=== PATIENT | female | born 1980 | race Caucasian/White ===

== ENCOUNTER 2018-04-26 13:22 | Inpatient (IN) | payer BC ==
[2018-04-26] MEDS ORDERED: Calcium Carbonate 500 MG Tab.Chew PO PRN (14:06)
[2018-04-26] MEDS ORDERED: Lidocaine 1% 50 ML MDV INJECT ONE (14:06)
[2018-04-26] MEDS ORDERED: Nalbuphine 20 MG/ML 1 ML Syringe IVPUSH PRN (14:06)
[2018-04-26] MEDS ORDERED: Sodium Chloride 0.9% 10 ML Syringe FLUSH PRN (14:06)
[2018-04-26] MEDS ORDERED: Ondansetron 4 MG/2 ML SDV IVPUSH PRN ×2 (14:06→14:10)
[2018-04-26] MEDS ORDERED: ePHEDrine 50 MG/ML SDV IVPUSH PRN (14:10)
[2018-04-26] MEDS ORDERED: fentaNYL 100 MCG/2 ML SDV EPIDUR PRN (14:10)
[2018-04-26] MEDS ORDERED: diphenhydrAMINE 50 MG/ML SDV IVPUSH PRN (14:10)
--- NOTE | 2018-04-26 14:10 | PCM.PREANE ---
Preanesthetic Assessment - Anesthesia/Transfusion/Family Hx Anesthesia History: Prior Anesthesia Reaction Type of Anesthesia Reaction: Excessive Nausea/Vomiting Family History of Anesthesia Reaction: No Transfusion History: No Prior Transfusion(s) Intubation History: Unknown - Review of Systems General: No Symptoms Pulmonary: No Symptoms Cardiovascular: No Symptoms Gastrointestinal: No Symptoms (History of gastric bypass/GERD), Constipation Neurological: No Symptoms (sciatica pain more on left side with ) Other: Reports: Easy Bleeding, Easy Bruising, Anxiety - Physical Assessment NPO Status Date: 04/26/18 NPO Status Time: 11:00 Pulse: 77 O2 Sat by Pulse Oximetry: 99 Respiratory Rate: 16 Blood Pressure: 129/78 Temperature: 36.5 C Height: 1.68 m Weight: 97 kg ASA Class: 2 Mental Status: Alert & Oriented x3 Airway Class: Mallampati = 2 Dentition: Reports: Normal Dentition, Caries Thyro-Mental Finger Breadths: 3 Mouth Opening Finger Breadths: 3 ROM/Head Extension: Full Lungs: Clear to Auscultation, Normal Respiratory Effort Cardiovascular: Regular Rate, Regular Rhythm, No Murmurs - Allergies Allergies/Adverse Reactions: Allergies Allergy/AdvReac Type Severity Reaction Status Date / Time cefaclor [From Ceclor] Allergy Hives Verified 10/11/15 02:24 sulfamethoxazole Allergy Hives Verified 10/11/15 02:24 [From Bactrim] trimethoprim [From Bactrim] Allergy Hives Verified 10/11/15 02:24 - Anesthesia Plan Pre-Op Medication Ordered: None - Acknowledgements Anesthesia Type Planned: Epidural Pt an Appropriate Candidate for the Planned Anesthesia: Yes Alternatives and Risks of Anesthesia Discussed w Pt/Guardian: Yes Pt/Guardian Understands and Agrees with Anesthesia Plan: Yes PreAnesthesia Questionnaire HEENT History: Reports: None Gastrointestinal History: Reports: None ORACLE CONSULTANT History: Reports: , Other (See Below) Other OB/BYN History: 23week delivery of twins due to abruption - Past Surgical History HEENT Surgical History: Reports: Oral Surgery, Tonsillectomy GI Surgical History: Reports: Bariatric Procedure, Cholecystectomy, Other (See Below)
[2018-04-26] MEDS ORDERED: fentaNYL/Bupivacaine-NS 2 MCG/ML-0.125%/PF 100 ML Bag EP SCH (14:15)
[2018-04-26] MEDS ORDERED: Oxytocin/Lactated Ringers 10 UNIT/1,000 ML BAG IV SCH ×2 (14:15)
[2018-04-26] MEDS ORDERED: Phenylephrine 1 MG in Sodium Chloride 0.9% 10 ML IV SCH (14:15)
[2018-04-26] MEDS ORDERED: Ampicillin 2 GM in Sodium Chloride 0.9% 100 ML IV ONE (14:30)
[2018-04-26] MEDS: Lactated Ringers 1,000 ML IV SCH ×2 (14:49→18:46)
[2018-04-26] MEDS ORDERED: Ampicillin 1 GM in Sodium Chloride 0.9% 100 ML IV SCH (18:30)
--- NOTE | 2018-04-26 19:53 | PCM.LDHP ---
L&D History of Present Illness - General Date of Service: 04/26/18 Admit Problem/Dx: Patient Status Order with Admit Dx/Problem 04/26/18 14:06 Patient Status [ADT] Routine Admission Diagnosis/Problem Admission Diagnosis/Problem 04/26/18 19:41 Shelia is a 37-year-old 3 para 02/08/00 white female at 39-0/7 weeks gestational age with an ANGEL of 05/03/2018 who is admitted to labor and delivery for an elective induction of labor Source of Information: Patient History Limitations: Reports: No Limitations - History of Present Illness Introduction:: Shelia is a 37-year-old 3 para 02/08/00 white female at 39-0/7 weeks gestational age with an ANGEL of 05/03/2018 who is admitted to labor and delivery for an elective induction of labor. Patient is admitted for elective induction of labor per her desire. Her ANGEL is 05/03/2018 as determined by a certain laststarting 07/27/2017 and supported by 4 ultrasounds done during the on 10/13/2017, 12/22/2017, 01/23/2018 and 02/24/2018. She is alejandra occasionally. heart tones are reassuring. SENIOR UX DEVELOPER history:Patient has a final statured history. She is a 3 para 02/07. Vision menarche at approximate age 13. Cycles irregular. Last menstrual period however is definite starting on 07/27/2017. 1. Twin gestationmodel dye twins named Mika and Adonay delivered on 10/22/2014 at 23 weeks gestational age. Mika weighed 1 lb. 2 oz. and Adonay weighed 0 lbs. 14 oz. Both succumbed shortly after . 2. Female infant born 10/11/2015 at 37 weeks gestational age after 4 hours of labor. 6 lbs. 6 oz. born via spell normal spontaneous vaginal delivery. Born at [facility] in [place]. Child's name is Ivis SENIOR UX DEVELOPER history: The patient was seen on a regular basis during the course of . Her first visit was on 10/13/2017 at 11-1/7 weeks gestational age. She is seen regularly, had normal fundal height growth. Her weight increased from 188 pounds 211 pounds for approximately 23 pound weight gain. She declined a flu vaccination. She had some contractions on 03/22/2018 but fibronectin was done and was negative. Patient had group B strep positive urine culture. She is Rh- with O- blood. She had RhoGAM given on 02/08/2018. She did receive her Tdap immunization on 02/23/2018. Laboratory testing shows blood to be O- with a negative antibody screen. Her blood at first visit showed hemoglobin 12.2 g/dL and platelets of 398,000. She is rubella immune. RPR is not is nonreactive. Urine culture was positive for group B strep. Hepatitis B surface antigen and HIV assays were both negative. Chlamydia and gonorrhea both negative. Her second trimester labs showed hemoglobin which was 9.5 g/dL which time patient was started on some vitamins plus iron. Platelet count is 415,000. Her diabetic screen was normal at 128,000. Third trimester hemoglobin was 8.9 g/dL and platelets are 404 ,000. Group B strep was positive. Allergies: 1. Ceclor which causes hives and swelling 2. Augmentin which causes hives and swelling 3. Bactrim which causes hives and swelling Medications: 1. Mupirocin ointment apply 3 times a day when necessary 2. Valacyclovir when necessary for oral herpes 3. vitamins daily 4. Vitamin D tablets 1000 units per day 5. Vitamin B 12 tablets 1 daily 6. Calcium plus D1 tablet daily 7. Zantac 50 mg by mouth every 12 hours when necessary Past medical history: 1. Vaginal delivery of 23 week twins 10/22/2014 monochorionic, diamniotic twins- both shortly after delivery 2. Normal spontaneous vaginal delivery 10/11/2015, term 3. Depression Past surgical history: Gastric bypass surgery 2. Cholecystectomy 2008 3. Tonsillectomy 2010 4. Sinus surgery 1994 Review of systems: In general patient has no complaints. Babies been active. Skin: Negative Lungs: No infectious symptoms or shortness of breath Cardiovascular: No chest pain or exercise intolerance Breasts: No lumps, changes in size, pain, dimpling, discharge or axillary or supraclavicular concerns. Changes associated . GI: Negative : Negative other than changes associated . Musculoskeletal: Negative Neurological: Negative In general the patient is well-developed, well-nourished, pleasant female of stated age in no acute distress. Skin is warm dry without lesions. HEENT, neck and back within normal limits. Lungs are clear with good breath sounds in all lung gracia. Cardiovascular exam shows regular and rhythm without murmurs. Abdomen is gravid with fundal height consistent with term at 37-1/2 cm. Baby in vertex presentation Genital cervix 3 cm, 80% effaced, -3 station, well applied to the cervix, artificial rupture membranes with clear amniotic fluid present. Extremities and neurological exam are grossly within normal limits. Pain Score: 8 - Related Data Allergies/Adverse Reactions: Allergies Allergy/AdvReac Type Severity Reaction Status Date / Time cefaclor [From Ceclor] Allergy Hives Verified 10/11/15 02:24 sulfamethoxazole Allergy Hives Verified 10/11/15 02:24 [From Bactrim] trimethoprim [From Bactrim] Allergy Hives Verified 10/11/15 02:24 Home Medications: Home Meds Amoxicillin 500 mg PO TID 04/26/18 [History] Calcium Carbonate [Calcium] 500 mg PO DAILY 04/26/18 [History] Cholecalciferol (Vitamin D3) [Vitamin D3] 2,000 unit PO DAILY 04/26/18 [History] Cyanocobalamin/Cobamamide [Vitamin B-12 5,000 Mcg Tab Sl] 1 each SL DAILY [History] Omeprazole Magnesium [Prilosec] 10 mg PO DAILY 04/26/18 [History] Pnv No.122/Iron/Folic Acid [ Multi Tablet] 1 each PO DAILY 04/26/18 [ History] Sertraline [Zoloft] 25 mg PO DAILY 04/26/18 [History] Past Medical History HEENT History: Reports: None Other HEENT History: tooth abcess Gastrointestinal History: Reports: None SENIOR UX DEVELOPER History: Reports: , Other (See Below) Other OB/BYN History: 23week delivery of twins due to abruption Psychiatric History: Reports: Anxiety, Depression Endocrine/Metabolic History: Reports: Obesity/BMI 30+ Hematologic History: Reports: Anemia - Past Surgical History HEENT Surgical History: Reports: Oral Surgery, Tonsillectomy GI Surgical History: Reports: Bariatric Procedure, Cholecystectomy, Other (See Below) Social & Family History - Family History Family Medical History: Noncontributory - Tobacco Use Smoking Status *Q: Never Smoker - Recreational Drug Use Recreational Drug Use: No H&P Review of Systems - Review of Systems: Review Of Systems: See Below L&D Exam - Exam Exam: See Below - Vital Signs Vital Signs: Last Vital Signs Temp 36.5 C 04/26/18 14:28 Pulse 77 04/26/18 14:28 Resp 16 04/26/18 14:28 BP 129/78 04/26/18 14:28 Pulse Ox 99 04/26/18 14:28 Weight: 96.797 kg - Patient Data Lab Results Last 24 hrs: Laboratory Results - last 24 hr 04/26/18 Range/Units 13:50 WBC 9.73 (3.98-10.04) K/mm3 RBC 3.70 L (3.98-5.22) M/mm3 Hgb 9.2 L (11.2-15.7) gm/L Hct 29.2 L (34.1-44.9) % MCV 78.9 L (79.4-94.8) fl MCH 24.9 L (25.6-32.2) pg MCHC 31.5 L (32.2-35.5) g/dl RDW Std Deviation 41.7 (36.4-46.3) fL Plt Count 408 H (182-369) K/mm3 MPV 9.7 (9.4-12.3) fl Result Diagrams: 04/26/18 13:50 Problem List Initiated/Reviewed/Updated: Yes Orders Last 24hrs: Active Orders 24 hr Category Date Time Status Patient Status [ADT] Routine ADT 04/26/18 14:06 Active Activity as Tolerated [RC] PFP Care 04/26/18 14:06 Active Antiembolic Devices [RC] PER UNIT ROUTINE Care 04/26/18 14:10 Active Communication Order [RC] ASDIRECTED Care 04/26/18 14:06 Active Notify Provider [RC] ASDIRECTED Care 04/26/18 14:10 Active Notify Provider [RC] PFP Care 04/26/18 14:06 Active Notify Provider [RC] PRN Care 04/26/18 14:06 Active Peripheral IV Care [RC] Q2HR Care 04/26/18 14:07 Active Pulse Oximetry [RC] ASDIRECTED Care 04/26/18 14:10 Active Pump Management, Intrathecal [RC] ASDIRECTED Care 04/26/18 14:10 Active Urinary Catheter Assessment [RC] ASDIRECTED Care 04/26/18 14:06 Active Vital Signs [RC] PER UNIT ROUTINE Care 04/26/18 14:06 Active Regular Diet [DIET] Diet 04/26/18 Dinner Active RAPID PLASMA REAGIN,RPR [CHEM] Routine Lab 04/26/18 13:50 Received Ampicillin 1 gm Med 04/26/18 18:30 Active Sodium Chloride 0.9% [Normal Saline] 100 ml IV Q4H Calcium Carbonate [Tums] Med 04/26/18 14:06 Active 1,000 mg PO Q2H PRN Lactated Ringers [Ringers, Lactated] 1,000 ml Med 04/26/18 14:15 Active IV ASDIRECTED Nalbuphine [Nubain] Med 04/26/18 14:06 Active 10 mg IVPUSH Q2H PRN Ondansetron [Zofran] Med 04/26/18 14:10 Active 4 mg IVPUSH ONETIME PRN Ondansetron [Zofran] Med 04/26/18 14:06 Active 4 mg IVPUSH Q4H PRN Oxytocin/Lactated Ringers [Pitocin in LR 10 Units/1,000 Med 04/26/18 14:15 Active ML] 10 unit in 1,000 ml IV .CONTINUOUS Oxytocin/Lactated Ringers [Pitocin in LR 10 Units/1,000 Med 04/26/18 14:15 Active ML] 10 unit in 1,000 ml IV TITRATE Phenylephrine [Oscar-Synephrine] 1 mg Med 04/26/18 14:15 Active Sodium Chloride 0.9% [Normal Saline] 10 ml IV TITRATE Sodium Chloride 0.9% [Saline Flush] Med 04/26/18 14:06 Active 10 ml FLUSH ASDIRECTED PRN diphenhydrAMINE [Benadryl] Med 04/26/18 14:10 Active 25 mg IVPUSH Q6H PRN ePHEDrine [ePHEDrine sulfate] Med 04/26/18 14:10 Active 5 mg IVPUSH ASDIRECTED PRN fentaNYL [Sublimaze] Med 04/26/18 14:10 Active 100 mcg EPIDUR Q3H PRN fentaNYL/Bupivacaine/NS/PF [yxxzyQGG-Ddyjl-OU 2 MCG/ML- Med 04/26/18 14:15 Active 0.125%] 100 ml EP ASDIRECTED Electronic Heart Tones Ext w TOCO [WOMSER] Oth 04/26/18 14:06 Ordered Routine Electronic Heart Tones Internal [WOMSER] Per Unit Oth 04/26/18 14:06 Ordered Routine Peripheral IV Insertion Adult [OM.PC] Routine Oth 04/26/18 14:06 Ordered Sequential Compression Device [OM.PC] Routine Oth 04/26/18 14:06 Ordered Resuscitation Status Routine Resus Stat 04/26/18 14:06 Ordered Medication Orders Calcium Carbonate/Glycine (Tums) 1,000 mg PO Q2H PRN PRN Reason: Indigestion Diphenhydramine HCl (Benadryl) 25 mg IVPUSH Q6H PRN PRN Reason: pruritis Ephedrine Sulfate (Ephedrine Sulfate) 5 mg IVPUSH ASDIRECTED PRN PRN Reason: Hypotension Fentanyl (Sublimaze) 100 mcg EPIDUR Q3H PRN PRN Reason: Pain Last Admin: 04/26/18 18:24 Dose: 100 mcg Fentanyl/Bupivacaine HCl (Nytjxqvh-Mlqlg-Pu 2 Mcg/Ml-0.125%) 100 ml EP ASDIRECTED LELO Last Admin: 04/26/18 18:24 Dose: 100 ml Phenylephrine HCl 1 mg/ Sodium (Chloride) 10.1 mls @ 1 mls/sec IV TITRATE LELO; Protocol Ampicillin Sodium 1 gm/ Sodium (Chloride) 100 mls @ 200 mls/hr IV Q4H LELO Last Admin: 04/26/18 18:31 Dose: 200 mls/hr Lactated Ringer's (Ringers, Lactated) 1,000 mls @ 100 mls/hr IV ASDIRECTED LELO Last Admin: 04/26/18 18:46 Dose: 999 mls/hr Infusion: 04/26/18 18:46 Dose: 100 mls/hr Admin: 04/26/18 14:49 Dose: 100 mls/hr Oxytocin/Lactated Ringer's (Pitocin In Lr 10 Units/1,000 Ml) 10 unit in 1,000 mls @ 500 mls/hr IV .CONTINUOUS LELO Oxytocin/Lactated Ringer's (Pitocin In Lr 10 Units/1,000 Ml) 10 unit in 1,000 mls @ 12 mls/hr IV TITRATE LELO; Protocol Last Titration: 04/26/18 18:40 Dose: 10 munits/min, 60 mls/hr Titration: 04/26/18 18:18 Dose: 8 munits/min, 48 mls/hr Titration: 04/26/18 17:45 Dose: 6 munits/min, 36 mls/hr Titration: 04/26/18 17:27 Dose: 4 munits/min, 24 mls/hr Admin: 04/26/18 17:12 Dose: 2 munits/min, 12 mls/hr Nalbuphine HCl (Nubain) 10 mg IVPUSH Q2H PRN PRN Reason: pain Ondansetron HCl (Zofran) 4 mg IVPUSH ONETIME PRN PRN Reason: Nausea/Vomiting Ondansetron HCl (Zofran) 4 mg IVPUSH Q4H PRN PRN Reason: Nausea/Vomiting Sodium Chloride (Saline Flush) 10 ml FLUSH ASDIRECTED PRN PRN Reason: Keep Vein Open Assessment/Plan Comment:: 1. 39 0/7 week intrauterine , ANGEL 05/03/2018 admitted for elective induction of labor 2. Rubella immune 3. Patient desires epidural in labor for analgesia 4. Patient plans to breast-feed 5.Group B strep screen is positive. Patient will be treated with ampicillin in labor and delivery. She has had no problems with amoxicillin. Plan: 1. Anticipate normal spontaneous vaginal delivery 2. Support breast-feeding decision 3. Epidural in labor 4. RPR on admission. Also do a CBC for platelet count.
--- NOTE | 2018-04-26 21:47 | PCM.SN ---
- Free Text/Narrative Note: Delivery note: Shelia is a 37-year-old now 3 para 2/02/08 (twins 1-born at 23 weeks with demise 2) who is admitted for elective induction of labor on 04/26/2018 at 39-0/7 weeks gestational age with an ANGEL of 05/03/2018. She underwent artificial rupture membranes induction with Pitocin augmentation. An epidural placed for labor and analgesia She became completely dilated approximately 2100 and pushed for 3 contractions. She delivered a viable, gonzalez, male with Apgars of 8 and 9, a weight of 3600 g (7 lbs. 15 oz.) at 2105 hrs. on 04/26/2018. Baby is 19.0 inches in length. Baby delivered in occiput anterior position. She had a second-degree perineal laceration. Baby was placed on mom's abdomen, nose and mouth were bulb suctioned. Cord was allowed to pulsate times approximately 1-2 minutes. Cord was clamped 2 and was cut by the baby's father. Cord blood was obtained. Pitocin was started after delivery the baby to facilitate increase uterine tone and decrease likelihood of bleeding. The secondary laceration was repaired in routine fashion with 3-0 Monocryl. Patient tolerated this well. Epidural analgesia was used for perineal laceration anesthesia. Estimated blood loss was 200 mL. Patient plans to bottlefeed. Condition: Good
[2018-04-26] MEDS ORDERED: Lidocaine 1.5% with EPINEPHrine 1:200,000 5 ML Amp ONE (22:00)
[2018-04-26] MEDS ORDERED: Bupivacaine 0.25% 10 ML SDV ONE (22:00)
[2018-04-26] MEDS ORDERED: Benzocaine/Menthol 20%-0.5% Spray 56 GM Canister TOP PRN (22:02)
[2018-04-26] MEDS ORDERED: Lanolin 100% Cream 7 GM Tube TOP PRN (22:02)
[2018-04-26] MEDS: Ibuprofen 600 MG Tab PO PRN (22:55)
[2018-04-26] MEDS: Docusate Sodium 100 MG Cap PO PRN (22:56)
[2018-04-26] MEDS: Witch Hazel Medicated Pads 40/Jar TOP PRN (22:57)
[2018-04-27] MEDS: Acetaminophen 325 MG Tab PO PRN ×2 (02:50→11:26)
[2018-04-27] MEDS: Ibuprofen 600 MG Tab PO PRN ×5 (04:40→22:40)
--- NOTE | 2018-04-27 06:45 | PCM.SN ---
- Free Text/Narrative Note: note: Patient is doing well in the period. Minimal lochia, voiding well, ambulated without problems. Nursing without concerns. Patient is afebrile, vital signs are stable Abdomen is flat, soft, uterus is below the umbilicus and is firm and nontender. Legs are nontender. Assessment: recovery going well. Plan: Routine care. Patient be discharged home within the next 24-48 hours.
--- NOTE | 2018-04-27 08:24 | PCM48HPAN ---
Post Anesthesia Note - EVALUATION WITHIN 48HRS OF ANESTHETIC Vital Signs in Normal Range: Yes Patient Participated in Evaluation: Yes Respiratory Function Stable: Yes Airway Patent: Yes Cardiovascular Function Stable: Yes Hydration Status Stable: Yes Pain Control Satisfactory: Yes Nausea and Vomiting Control Satisfactory: Yes Mental Status Recovered: Yes - COMMENTS/OBSERVATIONS Free Text/Narrative:: Shelia reports back soreness this morning. Otherwise, she has been up moving around and feels good. She has no further questions at this time.
[2018-04-27] MEDS ORDERED: Sertraline 25 MG Tab PO SCH (09:00)
[2018-04-27] MEDS: Prenatal Multivitamin with Calcium/Folic Acid/Iron Tab PO SCH (09:01)
[2018-04-27] MEDS: Docusate Sodium 100 MG Cap PO PRN ×2 (09:03→21:43)
[2018-04-27] MEDS: Witch Hazel Medicated Pads 40/Jar TOP PRN (16:17)
[2018-04-28] MEDS: Ibuprofen 600 MG Tab PO PRN ×2 (03:33→08:12)
--- NOTE | 2018-04-28 06:02 | PCM.DCSUM1 ---
Discharge Summary - Hospital Course Free Text/Narrative:: Shelia is a 37-year-old now 3 para 2/02/08 (twins 1-born at 23 weeks with demise 2) who is admitted for elective induction of labor on 04/26/2018 at 39-0/7 weeks gestational age with an ANGEL of 05/03/2018. She underwent artificial rupture membranes induction with Pitocin augmentation. An epidural placed for labor and analgesia She became completely dilated approximately 2100 and pushed for 3 contractions. She delivered a viable, gonzalez, male infant with Apgars of 8 and 9, a weight of 3600 g (7 lbs. 15 oz.) at 2105 hrs. on 04/26/2018. Baby is 19.0 inches in length. Baby delivered in occiput anterior position. She had a second-degree perineal laceration. Baby was placed on mom's abdomen, nose and mouth were bulb suctioned. Cord was allowed to pulsate times approximately 1-2 minutes. Cord was clamped 2 and was cut by the baby's father. Cord blood was obtained. Pitocin was started after delivery the baby to facilitate increase uterine tone and decrease likelihood of bleeding. The secondary laceration was repaired in routine fashion with 3-0 Monocryl. Patient tolerated this well. Epidural analgesia was used for perineal laceration anesthesia. Estimated blood loss was 200 mL. Pleasant very well. She is bottle feeding. She is ambulating well with minimal lochia and is voiding without concerns. She is desiring discharge home. Diagnosis: Stroke: No - Discharge Data Discharge Date: 04/28/18 Discharge Disposition: Home, Self-Care 01 Condition: Good - Patient Instructions Diet: Regular Diet as Tolerated Activity: As Tolerated (No intercourse or tampons until bleeding resolves.) Driving: May Drive Today Showering/Bathing: May Shower (May take a bath) Notify Provider of: Fever, Increased Pain, Swelling and Redness, Nausea and/or Vomiting - Discharge Plan Home Medications: Home Meds Amoxicillin 500 mg PO TID 04/26/18 [History] Calcium Carbonate [Calcium] 500 mg PO DAILY 04/26/18 [History] Cholecalciferol (Vitamin D3) [Vitamin D3] 2,000 unit PO DAILY 04/26/18 [History] Cyanocobalamin/Cobamamide [Vitamin B-12 5,000 Mcg Tab Sl] 1 each SL DAILY [History] Omeprazole Magnesium [Prilosec] 10 mg PO DAILY 04/26/18 [History] Pnv No.122/Iron/Folic Acid [ Multi Tablet] 1 each PO DAILY 04/26/18 [ History] Sertraline [Zoloft] 25 mg PO DAILY 04/26/18 [History] Acetaminophen [Tylenol] 650 mg PO Q4H PRN tablet 04/28/18 [Rx] Ibuprofen [Motrin] 600 mg PO Q4H PRN tablet 04/28/18 [Rx] Referrals: Matt Biggs MD [Primary Care Provider] - (Return to clinicDr. Biggs2 weeks.) - Discharge Summary/Plan Comment DC Time >30 min.: No Discharge Summary/Plan Comment: Discharge instructions: 1. Discharge home 2. Diet, activity and follow-up discussed with patient. Recommend regular diet. 3. Precautions given concern increased pain, bleeding, temperature, signs/ symptoms of DVT/PE. 4. Medications per home medication was printed, discussed with and given to the patient. 5. Return to clinic-Dr. Biggs-[facility] in 2 weeks. Diagnosis: Term -delivered Condition: Good - Patient Data Vitals - Most Recent: Last Vital Signs Temp 36.4 C 04/28/18 03:37 Pulse 82 04/28/18 03:37 Resp 14 04/28/18 03:37 BP 112/73 04/28/18 03:37 Pulse Ox 96 04/28/18 03:37 Weight - Most Recent: 96.797 kg I&O - Last 24 hours: Intake & Output 04/27/18 04/27/18 04/28/18 14:59 22:59 06:59 Intake Total 121 Balance 121 Lab Results - Last 24 hrs: Laboratory Results - last 24 hr 04/27/18 Range/Units 06:11 Blood Type O NEGATIVE Gel Antibody Screen Positive Screen 2 ros/5 flds - neg RhIG Candidate? Yes Rhogam Indicated Yes, baby rh pos H Med Orders - Current: Current Medications Acetaminophen (Tylenol) 650 mg PO Q4H PRN PRN Reason: mild pain or fever Last Admin: 04/27/18 11:26 Dose: 650 mg Benzocaine/Menthol (Dermoplast Pain Relief [place]) 0 gm TOP ASDIRECTED PRN PRN Reason: Perineal Comfort Measure Last Admin: 04/26/18 22:57 Dose: 1 canister Docusate Sodium (Colace) 100 mg PO BID PRN PRN Reason: Constipation Last Admin: 04/27/18 21:43 Dose: 100 mg Emollient Ointment (Lansinoh Hpa) 0 gm TOP ASDIRECTED PRN PRN Reason: Sore Nipples Ibuprofen (Motrin) 600 mg PO Q4H PRN PRN Reason: Mild pain or fever Last Admin: 04/28/18 03:33 Dose: 600 mg Prenat Multivit/Divide/Iron/Folic Ac ( Plus Iron) 1 each PO DAILY LELO Last Admin: 04/27/18 09:01 Dose: 1 each Witch Amelie (Tucks) 1 pad TOP ASDIRECTED PRN PRN Reason: Pain Last Admin: 04/27/18 16:17 Dose: 1 container Discontinued Medications Calcium Carbonate/Glycine (Tums) 1,000 mg PO Q2H PRN PRN Reason: Indigestion Diphenhydramine HCl (Benadryl) 25 mg IVPUSH Q6H PRN PRN Reason: pruritis Ephedrine Sulfate (Ephedrine Sulfate) 5 mg IVPUSH ASDIRECTED PRN PRN Reason: Hypotension Fentanyl (Sublimaze) 100 mcg EPIDUR Q3H PRN PRN Reason: Pain Last Admin: 04/26/18 18:24 Dose: 100 mcg Fentanyl/Bupivacaine HCl (Ouzvmoil-Bqufx-Id 2 Mcg/Ml-0.125%) 100 ml EP ASDIRECTED [facility] Last Admin: 04/26/18 18:24 Dose: 100 ml Phenylephrine HCl 1 mg/ Sodium (Chloride) 10.1 mls @ 1 mls/sec IV TITRATE LELO; Protocol Ampicillin Sodium 2 gm/ Sodium (Chloride) 100 mls @ 200 mls/hr IV ONETIME ONE Stop: 04/26/18 14:59 Last Admin: 04/26/18 14:49 Dose: 200 mls/hr Ampicillin Sodium 1 gm/ Sodium (Chloride) 100 mls @ 200 mls/hr IV Q4H [facility] Last Admin: 04/26/18 18:31 Dose: 200 mls/hr Lactated Ringer's (Ringers, Lactated) 1,000 mls @ 100 mls/hr IV ASDIRECTED [facility] Last Admin: 04/26/18 18:46 Dose: 999 mls/hr Oxytocin/Lactated Ringer's (Pitocin In Lr 10 Units/1,000 Ml) 10 unit in 1,000 mls @ 500 mls/hr IV .CONTINUOUS LELO Oxytocin/Lactated Ringer's (Pitocin In Lr 10 Units/1,000 Ml) 10 unit in 1,000 mls @ 12 mls/hr IV TITRATE LELO; Protocol Last Titration: 04/26/18 18:40 Dose: 10 munits/min, 60 mls/hr Lidocaine HCl (Xylocaine 1%) 20 ml INJECT ONETIME ONE Stop: 04/26/18 14:07 Last Admin: 04/27/18 01:12 Dose: Not Given Nalbuphine HCl (Nubain) 10 mg IVPUSH Q2H PRN PRN Reason: pain Ondansetron HCl (Zofran) 4 mg IVPUSH ONETIME PRN PRN Reason: Nausea/Vomiting Ondansetron HCl (Zofran) 4 mg IVPUSH Q4H PRN PRN Reason: Nausea/Vomiting Sertraline HCl (Zoloft) 25 mg PO DAILY LELO Sodium Chloride (Saline Flush) 10 ml FLUSH ASDIRECTED PRN PRN Reason: Keep Vein Open
[2018-04-28] MEDS: Prenatal Multivitamin with Calcium/Folic Acid/Iron Tab PO SCH (08:12)
[2018-04-28 09:21] VITALS: BP 126/76
== END 2018-04-28 11:35 | disposition home or self-care (01) | DRG 560 ==
LOC: JD.OB 13:22 → OBSVTOIN 21:05 → JD.OB 21:05
PROVIDERS: ADMIT Obstetrics & Gynecology; ATTEND Obstetrics & Gynecology
PROC: 6A550ZT Pheresis of Cord Blood Stem Cells, Single (ICD-10-PCS; principal; 2018-04-26)
PROC: 10E0XZZ Delivery of Products of Conception, External Approach (ICD-10-PCS; principal; 2018-04-26)
PROC: 0KQM0ZZ Repair Perineum Muscle, Open Approach (ICD-10-PCS; principal; 2018-04-26)
PROC: 10907ZC Drainage of Amniotic Fluid, Therapeutic from Products of Conception, Via Natural or Artificial Opening (ICD-10-PCS; principal; 2018-04-26)
PROC: 00HU33Z Insertion of Infusion Device into Spinal Canal, Percutaneous Approach (ICD-10-PCS; 2018-04-26)
PROC: 3E0R3BZ Introduction of Anesthetic Agent into Spinal Canal, Percutaneous Approach (ICD-10-PCS; 2018-04-26)
PROC: 3E0234Z Introduction of Serum, Toxoid and Vaccine into Muscle, Percutaneous Approach (ICD-10-PCS; 2018-04-27)
DX: O99.824 Streptococcus B carrier state complicating childbirth (principal); O99.344 Other mental disorders complicating childbirth; F32.9 Major depressive disorder, single episode, unspecified; F41.9 Anxiety disorder, unspecified; O99.214 Obesity complicating childbirth; E66.9 Obesity, unspecified; O70.1 Second degree perineal laceration during delivery; Z3A.39 39 weeks gestation of pregnancy; Z37.0 Single live birth; O99.02 Anemia complicating childbirth; D64.9 Anemia, unspecified; O99.62 Diseases of the digestive system complicating childbirth; K21.9 Gastro-esophageal reflux disease without esophagitis; K59.00 Constipation, unspecified; O26.893 Other specified pregnancy related conditions, third trimester; Z67.41 Type O blood, Rh negative; Z88.1 Allergy status to other antibiotic agents; Z79.899 Other long term (current) drug therapy; Z90.49 Acquired absence of other specified parts of digestive tract; Z98.84 Bariatric surgery status
CPT/HCPCS: 01967; 36415; 51701; 59025; 59409; 85027; 86592; A9270-GY; J0290; J2590; J2790; J3010; J3490; J7030; J7120

== ENCOUNTER 2022-12-07 06:42 | Day surgery (SDC) | payer BC ==
[~2022-12-07 06:42] MED LIST: Lactated Ringers 1,000 ML IV SCH; Sodium Chloride 0.9% 10 ML Syringe FLUSH PRN; Sodium Chloride 0.9% 10 ML Syringe FLUSH SCH
[2022-12-07] MEDS ORDERED: Scopolamine 1.5 MG Transdermal Patch TOP SCH (06:58)
[2022-12-07] MEDS ORDERED: Propofol 200 MG/20 ML SDV ONE (07:03)
[2022-12-07] MEDS ORDERED: fentaNYL 100 MCG/2 ML SDV ONE ×2 (07:03→08:33)
[2022-12-07] MEDS ORDERED: Midazolam 1 MG/ML 2 ML SDV ONE (07:04)
[2022-12-07 07:10] LABS: BASOPHILS PERCENT AUTO 0.4 % (0.0-1.0); EOSINOPHILS ABSOLUTE AUTO 0.2 K/mm3 (0.0-0.4); EOSINOPHILS PERCENT AUTO 2.5 % (0.0-6.0); HEMATOCRIT 40.5 % (37.0-47.0); HEMOGLOBIN 13.6 gm/dl (12.0-16.0); IMMATURE GRAN ABSOLUTE AUTO 0.03 K/mm3 (0.00-0.05); IMMATURE GRAN PERCENT AUTO 0.4 % (0.0-0.4); LYMPHOCYTES ABSOLUTE AUTO 2.4 K/mm3 (1.0-4.8); LYMPHOCYTES PERCENT AUTO 33.8 % (24.0-44.0); MEAN CORPUSCULAR HEMOGLOBIN 29.8 pg (28.0-32.0); MEAN CORPUSCULAR HGB CONC 33.6 g/dl (32.0-36.0); MEAN CORPUSCULAR VOLUME 88.8 fl (83.0-99.0); MEAN PLATELET VOLUME 9.4 fl (9.4-12.3); MONOCYTES ABSOLUTE AUTO 0.4 K/mm3 (0.0-0.8); MONOCYTES PERCENT AUTO 5.6 % (0.0-8.0); NEUTROPHILS ABSOLUTE AUTO 4.1 K/mm3 (1.8-7.7); NEUTROPHILS PERCENT AUTO 57.3 % (41.0-71.0); PLATELET COUNT,PLT 346 K/mm3 (150-400); RED BLOOD CELL COUNT 4.56 M/mm3 (4.10-5.30); WHITE BLOOD CELL COUNT,WBC 7.16 K/mm3 (3.9-11.3)
[2022-12-07] MEDS ORDERED: EPINEPHrine 1 MG/ML SDV ONE (07:14)
[2022-12-07] MEDS ORDERED: Bupivacaine 0.25% 10 ML SDV ONE (07:15)
[2022-12-07] MEDS ORDERED: Lidocaine 1% 30 ML SDV ONE ×2 (07:15)
[2022-12-07] MEDS ORDERED: Rocuronium 50 MG/5 ML Vial ONE (07:19)
[2022-12-07] MEDS ORDERED: Succinylcholine 200 MG/10 ML MDV ONE (07:19)
[2022-12-07] MEDS ORDERED: Metoclopramide 10 MG/2 ML SDV ONE (07:22)
[2022-12-07] MEDS ORDERED: Dexamethasone 4 MG/ML 5 ML MDV ONE (07:22)
[2022-12-07 07:25] LABS: ANION GAP 16.9 (5-15); BUN/CREATININE RATIO 14.3 (14-18); CALCIUM 9.3 mg/dL (8.5-10.1); CREATININE 0.7 mg/dL (0.55-1.02); EST CRCL DRUG DOSING (CG) 99.01 mL/min; POTASSIUM,K 3.9 mEq/L (3.5-5.1)
[2022-12-07] MEDS ORDERED: Sodium Chloride 0.9% 50 ML SDV ONE (07:30)
[2022-12-07] MEDS ORDERED: HYDROmorphone 0.5 MG/0.5 ML Syringe ONE (08:03)
[2022-12-07] MEDS ORDERED: ceFAZolin 2 GM Vial ONE (08:05)
[2022-12-07] MEDS ORDERED: Neostigmine Methylsulfate 10 MG/10 ML MDV ONE (08:19)
[2022-12-07] MEDS ORDERED: fentaNYL 100 MCG/2 ML SDV IVPUSH PRN (09:03)
[2022-12-07] MEDS ORDERED: Ondansetron 4 MG/2 ML SDV IVPUSH PRN (09:03)
[2022-12-07] MEDS ORDERED: HYDROmorphone 0.5 MG/0.5 ML Syringe IVPUSH PRN (09:03)
[2022-12-07] MEDS ORDERED: Acetaminophen/HYDROcodone 325-5 MG Tab PO PRN (09:58)
[2022-12-07 11:34] VITALS: PULSE 68
[2022-12-07 12:08] VITALS: BP 129/79
== END 2022-12-07 12:50 | disposition home or self-care (01) ==
LOC: JD.SDS 06:42
PROVIDERS: ATTEND Obstetrics & Gynecology
DX: N80.03 Adenomyosis of the uterus (principal); N72 Inflammatory disease of cervix uteri; I10 Essential (primary) hypertension; F41.9 Anxiety disorder, unspecified; G50.0 Trigeminal neuralgia; F33.1 Major depressive disorder, recurrent, moderate; E66.9 Obesity, unspecified; Z90.49 Acquired absence of other specified parts of digestive tract; Z98.84 Bariatric surgery status; Z88.2 Allergy status to sulfonamides; Z88.0 Allergy status to penicillin; Z91.018 Allergy to other foods; Z88.8 Allergy status to other drugs, medicaments and biological substances; Z88.1 Allergy status to other antibiotic agents; Z79.899 Other long term (current) drug therapy; Z68.30 Body mass index [BMI] 30.0-30.9, adult
CPT/HCPCS: 00944; 36415; 80048; 81025; 85025; 86850; 86900; 86901; A9270-GY; J0171; J0330; J0690; J1100; J1170; J2250; J2405; J2704; J2710; J2765; J3010; J3490; J7120

== ENCOUNTER 2022-12-18 09:57 | Emergency (ER) | payer BC ==
[2022-12-18] MEDS ORDERED: Sodium Chloride 0.9% 1,000 ML IV ONE ×2 (10:44→12:44)
[2022-12-18] MEDS ORDERED: Sodium Chloride 0.9% 10 ML Syringe FLUSH PRN (10:44)
[2022-12-18 11:13] LABS: BASOPHILS PERCENT AUTO 0.4 % (0.0-1.0); EOSINOPHILS ABSOLUTE AUTO 0.5 K/mm3 (0.0-0.4); EOSINOPHILS PERCENT AUTO 6.5 % (0.0-6.0); HEMATOCRIT 39.9 % (37.0-47.0); HEMOGLOBIN 13.2 gm/dl (12.0-16.0); IMMATURE GRAN ABSOLUTE AUTO 0.03 K/mm3 (0.00-0.05); IMMATURE GRAN PERCENT AUTO 0.4 % (0.0-0.4); LYMPHOCYTES ABSOLUTE AUTO 2.1 K/mm3 (1.0-4.8); LYMPHOCYTES PERCENT AUTO 29.2 % (24.0-44.0); MEAN CORPUSCULAR HEMOGLOBIN 29.9 pg (28.0-32.0); MEAN CORPUSCULAR HGB CONC 33.1 g/dl (32.0-36.0); MEAN CORPUSCULAR VOLUME 90.5 fl (83.0-99.0); MEAN PLATELET VOLUME 9.4 fl (9.4-12.3); MONOCYTES ABSOLUTE AUTO 0.3 K/mm3 (0.0-0.8); MONOCYTES PERCENT AUTO 4.6 % (0.0-8.0); NEUTROPHILS ABSOLUTE AUTO 4.2 K/mm3 (1.8-7.7); NEUTROPHILS PERCENT AUTO 58.9 % (41.0-71.0); PLATELET COUNT,PLT 342 K/mm3 (150-400); RED BLOOD CELL COUNT 4.41 M/mm3 (4.10-5.30)
[2022-12-18 11:33] LABS: A/G RATIO 1.1 (1-2); ALBUMIN 3.8 g/dl (3.4-5.0); ANION GAP 13.7 (5-15); BILIRUBIN TOTAL 0.3 mg/dL (0.2-1.0); BUN/CREATININE RATIO 12.2 (14-18); CALCIUM 9.3 mg/dL (8.5-10.1); CREATININE 0.9 mg/dL (0.55-1.02); EST CRCL DRUG DOSING (CG) 77.01 mL/min; MAGNESIUM 2.2 mg/dL (1.8-2.4); POTASSIUM,K 4.7 mEq/L (3.5-5.1); PROTEIN TOTAL,TP 7.3 g/dl (6.4-8.2)
[2022-12-18 14:13] VITALS: BP 127/84; PULSE 85
== END 2022-12-18 14:00 | disposition home or self-care (01) ==
LOC: JD.ED 09:57
DX: I95.1 Orthostatic hypotension (principal); E86.0 Dehydration; I10 Essential (primary) hypertension; Z79.899 Other long term (current) drug therapy; Z88.2 Allergy status to sulfonamides; Z88.8 Allergy status to other drugs, medicaments and biological substances; Z68.29 Body mass index [BMI] 29.0-29.9, adult
CPT/HCPCS: 36415; 80053; 83735; 85025; 96360; 96361; 99284; J3490; J7030